=== PATIENT | female | born 1990 | race Caucasian/White ===

== ENCOUNTER 2019-09-15 00:26 | Day surgery (SDC) | payer BC, SELFPAY ==
[2019-09-09 13:33] VITALS: BMI 19.5
[2019-09-15 07:52] VITALS: BMI 19.9
[2019-09-15] MEDS: LACTATED RINGERS 1,000 ML 150 ML IV CONT (08:04)
[2019-09-15 08:10] VITALS: BP 103/75; PULSE 85; RESP 16; TEMP 36.6; O2SAT 100
--- NOTE | 2019-09-15 08:42 | PM.HPGS ---
History of Present Illness History of Present Illness Consent: Risks, benefits, and alternatives have been discussed and questions answered. Patient agrees to proceed with procedure. Chief complaint: Fam Hx Colon Ca Narrative: Ciara Nicole is a 28 year old female with family history of colon cancer, never had a colonoscopy Review of Systems Constitutional: Constitutional: Denies headache(s) and Denies weakness Eyes: Eyes: Denies blurry vision ENT: Reports Normal hearing present, Denies headache(s) and Denies neck pain Cardiovascular: Cardiovascular: Denies chest pain and Denies dyspnea Respiratory: Respiratory: Denies dyspnea Gastrointestinal: Gastrointestinal: Reports no additional gastrointestinal complaints Genitourinary: Genitourinary: Denies dysuria Musculoskeletal: Musculoskeletal: Denies neck pain Integumentary/Breasts: Skin/Breast: Denies dry skin Neurologic: Reports Normal hearing present, Denies headache(s) and Denies weakness Psychiatric: Psychiatric: Denies anxiety Endocrine: Endocrine: Denies change in body appearance Hematologic/Lymphatic: Hematologic/Lymphatic: Denies easy bleeding Allergic/Immunologic: Allergic/Immunologic: Denies urticaria PMFSH Past Medical History Medical History (Updated 07/20/19 @ 10:17 by Josh Neves PA-C) Family history of colon cancer Social History Social History Smoking status: Never smoker Second hand tobacco smoke exposure: No Alcohol intake: current Substance use: never Meds Home Medications and Allergies Home Medications Medication Instructions Recorded Confirmed Type multivitamin 1 tablet PO DAILY 07/13/19 09/15/19 History Allergies Allergy/AdvReac Type Severity Reaction Status Date / Time No Known Allergies Allergy Verified 09/15/19 07:52 Vital Signs Vital Signs - 24 hr 09/15/19 08:10 Temperature 98 F Pulse Rate 85 Respiratory Rate 16 Blood Pressure 103/75 Pulse Oximetry 100 Exam Const: General: comfortable and no acute distress HENMT: General nose exam: Normal nares present Eyes: General: appearance normal, both eyes and all related structures Neck: Neck: no JVD Resp: Auscultation: clear to auscultation bilaterally Cardio: Rate: regular rate Rhythm: regular rhythm GI: Inspection: non-distended GI Palp: Yes Soft to palpation Skin: General skin exam: normal color Neuro: General: gait normal Speech: normal speech Extrem: General: normal to inspection Psych: Mental Status: mental status grossly normal Assessment and Plan Assessment and plan (1) Family history of colon cancer: Code(s): Z80.0 - Family history of malignant neoplasm of digestive organs Status: Acute Assessment and Plan: will proceed with a colonoscopy
[2019-09-15 09:15] VITALS: BP 99/58; PULSE 58; RESP 18; O2SAT 99
[2019-09-15 09:25] VITALS: BP 97/77; PULSE 82; RESP 18; O2SAT 100
[2019-09-15 09:35] VITALS: BP 96/65; PULSE 86; RESP 18; O2SAT 100
== END 2019-09-15 09:41 | disposition home or self-care (01) ==
PROVIDERS: PCP Internal Medicine; Visit Provider Internal Medicine Gastroenterology
PROC: 0DJD8ZZ Inspection of Lower Intestinal Tract, Via Natural or Artificial Opening Endoscopic (ICD-10-PCS; CPT 45378; principal; 2019-09-15 08:30)
DX: Z12.11 Encounter for screening for malignant neoplasm of colon (principal); Z80.0 Family history of malignant neoplasm of digestive organs
CPT/HCPCS: 45378; J2704; J7120

== ENCOUNTER 2020-04-05 10:44 | Outpatient (CLI) | payer BC, SELFPAY ==
--- NOTE | ~2020-04-05 | XR_ITS ---
EXAMINATION:XR cervical spine 4-5V DATE: 04/05/2020 11:07 INDICATION: Neck pain TECHNIQUE: AP, lateral, lateral swimmers and odontoid views of the cervical spine are provided. COMPARISON: None FINDINGS: Alignment is normal. There is straightening of the cervical spine which can be positional or due to muscular spasm. The od ontoid is intact. No fracture is identified. Vertebral body heights and disk spaces are normal. Preve rtebral soft tissues are normal. IMPRESSION: 1. No acute osseous abnormality. Reviewed, dictated and finalized at location A.
--- NOTE | ~2020-04-05 | XR_ITS ---
EXAMINATION: XR lumbar spine 6V w bending DATE: 04/05/2020 11:08 INDICATION: Low back pain TECHNIQUE: Anteroposterior, lateral in neutral, flexion and extension, and bilateral oblique views of the lumbar spine, and cone-down lateral view of the lumbosacral junction were obtained. COMPARISON: None. FINDINGS: There is no fracture, dislocation, or subluxation. The vertebral body heights, alignment, a nd intervertebral disc spaces are normal. The paravertebral soft tissues are unremarkable. No laxity is present with flexion or extension. There is a moderate volume of colonic stool. IMPRESSION: 1. Normal lumbar spine. Reviewed, dictated and finalized at location A. IMPRESSION: 1. Normal lumbar spine.
== END 2020-04-05 10:45 | disposition home or self-care (01) ==
LOC: ANHIMG 10:49
PROVIDERS: PCP Internal Medicine; Visit Provider Physician Assistant
DX: M54.2 Cervicalgia (principal); M54.5 Low back pain
CPT/HCPCS: 72050; 72114

== ENCOUNTER 2020-04-11 13:59 | Outpatient (CLI) | payer BC, SELFPAY ==
--- NOTE | 2020-04-13 12:47 | WPDHOLTEREM ---
Holter/Event Monitor Holter/Event Monitor Date of procedure: 04/11/20 Procedure Type: 24 hour holter monitor Indications: Chest pain Conclusion: 1. 24 hour holter monitor on 04/11/20. 2. Underlying rhythm is sinus rhythm. HR range 48-126 bpm; average HR 75 bpm. 3. There are 2 premature supraventricular complexes. No supraventricular tachycardia. 4. No premature ventricular complexes. No ventricular tachycardia. 5. No sinoatrial or atrioventricular blocks. No significant pauses greater than 2 seconds. 6. Patient reports symptoms of chest pain and nausea which demonstrate sinus rhythm, HR range 65-98 bpm.
== END 2020-04-11 14:00 | disposition home or self-care (01) ==
LOC: ANHCARD 14:00
PROVIDERS: PCP Internal Medicine; Visit Provider Physician Assistant
DX: R07.9 Chest pain, unspecified (principal)
CPT/HCPCS: 93225; 93226

== ENCOUNTER 2020-10-17 16:52 | Outpatient (RCR) | payer BC, SELFPAY ==
[2020-10-20] MEDS: RHO(D) IMMUNE GLOBULIN 300 MCG/2 ML SYRINGE IM (17:21)
== END 2021-01-15 23:59 | disposition home or self-care (01) ==
LOC: ANHLAB 16:52
PROVIDERS: PCP Internal Medicine; Visit Provider Obstetrics & Gynecology
DX: Z29.13 Encounter for prophylactic Rho(D) immune globulin (principal); O36.0190 Maternal care for anti-D [Rh] antibodies, unspecified trimester, not applicable or unspecified; Z3A.00 Weeks of gestation of pregnancy not specified
CPT/HCPCS: 36415; 85461; 90384; 96372; J2790

== ENCOUNTER 2021-01-09 06:44 | Inpatient (IN) | payer BC, SELFPAY ==
[2021-01-09] VITALS (55 sets, daily range): BP systolic 92–138; BP diastolic 51–97; PULSE 69–113; RESP 13–16; TEMP 36.3–37.1; O2SAT 97–100; BMI 27.3
--- NOTE | 2021-01-09 07:00 | LDADM ---
This patient, Ciara Nicole, was admitted to Labor/Delivery/Recovery 106 on 01/09/21 at 06:44. Plans for labor, pain management and were discussed with patient. Patient/family oriented to hospital policies and general routines including ID bracelet, bed and alarms, visiting hours, pain management, procedures, bathroom and other care routines, personal items, smoking policy, room service/diet and guest tray routines, security routines, and visiting hours. Patient/Family are encouraged to report perceived risks to care and to ask questions if they do not understand what they are told or what they should do. See OBIX for further documentation.
[2021-01-09 07:35] LABS: Basophils Percent Auto 0.4 % (0.2-1.2); Eosinophils Percent Auto 0.4 % (0-4.4); Hematocrit 33.8 % (37.0-47.0); Hemoglobin 11.7 g/dL (12.0-15.0); Immature Granulocyte Absolute 0.06 K/mm3 (0.00-0.031); Immature Granulocyte Percent A 0.7 % (0-0.5); Immature Platelet Fraction Pct 11.2 % (0.9-11.2); Lymphocytes Absolute Auto 1.92 K/mm3 (0.9-3.2); Lymphocytes Percent Auto 22.9 % (18.3-44.2); Mean Corpuscular HGB Conc 34.6 g/dl (32-36); Mean Corpuscular Hemoglobin 32.4 pg (26-34); Mean Corpuscular Volume 93.6 fl (80-100); Mean Platelet Volume 11.8 fl (7.4-10.4); Monocytes Absolute Auto 0.9 K/mm3 (0.1-0.6); Monocytes Percent Auto 10.5 % (2.6-8.5); Neutrophils Absolute Auto 5.5 K/mm3 (1.3-6.7); Neutrophils Percent Auto 65.1 % (45.5-73.1); Platelet Count Result 128 k/mm3 (150-375); Red Blood Count 3.61 M/mm3 (4.2-5.4); Red Cell Distribution Width 12.4 % (11.5-14.5); White Blood Count 8.4 K/mm3 (4.5-10.0)
[2021-01-09] MEDS: OXYTOCIN 30 UNITS/NS 500 ML 30 UNITS/500 ML BAG IV CONT (09:28)
[2021-01-09] MEDS: LACTATED RINGERS 1,000 ML 125 ML IV CONT ×2 (09:28→11:12)
--- NOTE | 2021-01-09 09:31 | WPDANESEPPF ---
Anes - Initial Pre Proc Eval Procedure: Labor Epidural Date/Time: 01/09/21 09:31 Surgeon: Sumeet Dawson MD Pre Op Diagnosis: srom Patient Data Age: 30 Gender: F Height: 1.6 m Weight: 70 kg Last Vital Signs Pulse 76 01/09/21 08:01 BP 92/71 L 01/09/21 08:01 Allergies Allergy/AdvReac Type Severity Reaction Status Date / Time No Known Allergies Allergy Verified 01/04/21 10:36 Home Medications Medication Instructions Recorded Confirmed Type vits no.126-ferrous fum 1 tablet PO DAILY 05/25/20 01/09/21 History 28 mg iron-folic acid 800 mcg tablet Laboratory Tests 01/09/21 01/09/21 07:18 07:18 WBC 8.4 K/mm3 K/mm3 (4.5-10.0) RBC 3.61 M/mm3 L M/mm3 (4.2-5.4) Hgb 11.7 g/dL L g/dL (12.0-15.0) Hct 33.8 % L % (37.0-47.0) MCV 93.6 fl fl (80-100) MCH 32.4 pg pg (26-34) MCHC 34.6 g/dl g/dl (32-36) RDW 12.4 % % (11.5-14.5) Plt Count 128 k/mm3 L k/mm3 (150-375) MPV 11.8 fl H fl (7.4-10.4) Immature Gran % (Auto) 0.7 % H % (0-0.5) Neut % (Auto) 65.1 % % (45.5-73.1) Lymph % (Auto) 22.9 % % (18.3-44.2) Reeves % (Auto) 10.5 % H % (2.6-8.5) Eos % (Auto) 0.4 % % (0-4.4) Baso % (Auto) 0.4 % % (0.2-1.2) Lymph # (Auto) 1.92 K/mm3 K/mm3 (0.9-3.2) Reeves # (Auto) 0.9 K/mm3 H K/mm3 (0.1-0.6) Eos # (Auto) 0.0 K/mm3 K/mm3 (0-0.3) Baso # (Auto) 0.0 K/mm3 K/mm3 (0.0-0.1) Abs Immat Gran (auto) 0.06 K/mm3 H K/mm3 (0.00-0.031) Absolute Neuts (auto) 5.5 K/mm3 K/mm3 (1.3-6.7) Absolute Nucleated RBC 0.0 K/mm3 K/mm3 (0.0-0.012) Nucleated RBC % 0.0 % % (0.0-0.2) % Immature Plt Fraction 11.2 % % (0.9-11.2) RPR Pending Patient hx anesthesia problems: none Family hx anesthesia problems: none PMFSH Past Medical History Medical History Vaginal delivery x1 Surgical History Surgical History History of colonoscopy Family History Family History Mother Family history of gynecological problem Sibling Family history of gynecological problem Father Carcinoma of colon, Onset Age: 46 Grandparent Family history of malignant neoplasm of breast Social History Social History Smoking status: Never smoker Second hand tobacco smoke exposure: No Alcohol intake: current Substance use: never Spiritual care concerns: No Anes - Eval Final PreProcedure Day of Procedure 01/09/21 09:31 Patient weight: normal Heart: regular rate and rhythm Lungs: normal air movement Airway: Mallampati scale class II Neurological: alert and oriented Last oral intake: >/= 8 hours ASA classification: II Emergent: no Anesthetic plan: proceed Anesthesia type and monitoring: regional epidural Informed Consent: The patient's anesthetic plan and its attendant risks and benefits were discussed with the patient/family/POA. Questions were solicited and answers provided to the satisfaction of the patient/family/POA.
[2021-01-09 12:29] LABS: Rapid Plasma Reagin Non-Reactive (NonReactive)
[2021-01-09] MEDS: OXYTOCIN 30 UNITS/NS 500 ML 30 UNITS/500 ML BAG 125 UNITS IV CONT (12:55)
--- NOTE | 2021-01-09 12:57 | P.PCNOB_ITS ---
OB - Delivery Note Procedure Delivery date: 01/09/21 Procedure: Spontaneous vaginal delivery. Intrapartal events: None Induction method: none Delivery augmentation: pitocin Delivery monitor: external FHT Route of delivery: Specimen: No Quantitative Blood Loss (ml): 150 Anesthesia type: Epidural Disposition: floor Complications: None Narrative: Patient admitted to labor and delivery with complaints of leaking of fluid at 0500. Rupture of membranes confirmed. She had a cervical check at approximately 0915 and no change in cervical dilation. Contractions irregular mild. Pitocin augmentation was started. She requested and received epidural. She progressed to complete. She pushed twice and delivered a male infant. [place] Baby Date of : 01/09/21 Time of : 12:34 Weeks of gestation at delivery: 39 gender: Male Weight (pounds): 7 Weight (ounces): 5 presentation: vertex (right compound hand presentation.) position: Left Occiput Anterior (right compound hand presentation) Placenta delivery description: Spontaneous cord vessel description: Nuchal Cord, Loose and Delayed Cord Clamping score one minute: 9 score five minutes: 9
--- NOTE | 2021-01-09 16:50 | PC.NURSE ---
Mother called out for assist with feeding. Mother reports attempting for 20+ minutes infant is sleepy and waking to latch. Reviewed feeding cues, frequencies, duration of feedings, feeding elimination flow sheet, and signs of adequate intake. Demonstrated stimulation techniques to wake for feeding. Assisted with to breast. Reviewed positioning/alignment in cross cradle, holding breast in ?U? hold and guided asymmetrical latch on. Infant able to latch correctly. Infant nursed eagerly, with steady draws and frequent swallowing noted for approximately 2-3 minutes then fell asleep. returned to breast with good latch and no suckling noted. Reviewed signs of a correct latch, effective nursing and suck swallow ratio. Infant was able to maintain latch without discomfort to mother. Nipple care reviewed of lanolin after feedings, warm compresses as needed. Suggested mother stimulate while feeding to increase stimulate, increase intake and to assist with maintaining deep latch. Advised to skin to skin for 30 minutes and attempt again. Report to primary RN Instructed mother to call out for RN assistance if she is unable to latch for feeding or she has discomfort with nursing. Instructed feeding should be initiated three hours from start of last feeding or if feeding cues are noted before. Mother voiced understanding of information shared.
[2021-01-09] MEDS: ACETAMINOPHEN 325 MG TABLET 650 MG PO (20:44)
[2021-01-09] MEDS: IBUPROFEN 600 MG TABLET PO (23:45)
[2021-01-10 04:45] VITALS: BP 109/69; PULSE 89; RESP 14; TEMP 36.6; O2SAT 97
[2021-01-10 05:18] LABS: Hemoglobin 10.5 g/dL (12.0-15.0)
[2021-01-10] MEDS: IBUPROFEN 600 MG TABLET PO ×3 (05:37→19:50)
--- NOTE | 2021-01-10 07:24 | WPDANLDPN2 ---
Anes-Prog Note L&D Date/Time: 01/10/21 07:24 Comfortable throughout: labor and delivery Neuraxial method: epidural Epidural/Spinal procedure site: clean & non-tender Neuro status: Neuro function grossly intact. Cardiovascular status: normal Respiratory status: normal Airway patency: baseline Mental status: baseline Post-Op hydration status: normal Vital Signs: Last Vital Signs Temp 36.6 C 01/10/21 04:45 Pulse 89 01/10/21 04:45 Resp 14 01/10/21 04:45 BP 109/69 01/10/21 04:45 Pulse Ox 97 01/10/21 04:45 Pain score (VAS): 3 I/O: Intake & Output 01/09/21 01/09/21 01/10/21 15:59 23:59 07:59 Intake Total 1500 Output Total 305 Balance 1195 Post-procedural complaints: none Patient feedback: Patient satisfied with anesthetic care.
[2021-01-10 08:00] VITALS: BP 106/61; PULSE 94; RESP 20; TEMP 36.3; O2SAT 98
[2021-01-10 08:04] VITALS: PULSE 89; RESP 14; O2SAT 97
--- NOTE | 2021-01-10 08:16 | PM.IMHP ---
H&P: HPI History of Present Illness Date/Time: 01/10/21 08:16 Patient at 39 weeks admitted with SROM clear at 0500, confirmed on L and D. Cervix 2/5/50/-3. Irregular mild ctx. PNC uncomplicated. GBS neg. Labs reviewed. Chief Complaint: Leaking of fluid Review of Systems Review of Systems: All systems reviewed & are unremarkable except as noted in HPI and below Constitutional: Constitutional: Reports no additional constitutional complaints and Denies headache(s) Eyes: Eyes: Denies spots in vision ENT: Reports system reviewed and no additional complaints, except as documented and Denies headache(s) Cardiovascular: Cardiovascular: Denies chest pain and Denies dyspnea Respiratory: Respiratory: Denies dyspnea Gastrointestinal: Gastrointestinal: Reports no additional gastrointestinal complaints Genitourinary: Genitourinary: Reports amenorrhea Musculoskeletal: Musculoskeletal: Reports no additional musculoskeletal complaints Neurologic: Denies headache(s) Psychiatric: Psychiatric: Reports no additional psychiatric complaints PMFSH Past Medical History Medical History Vaginal delivery x1 Surgical History Surgical History History of colonoscopy Family History Family History Mother Family history of gynecological problem Sibling Family history of gynecological problem Father Carcinoma of colon, Onset Age: 46 Grandparent Family history of malignant neoplasm of breast Social History Social History Smoking status: Never smoker Second hand tobacco smoke exposure: No Alcohol intake: current Substance use: never Spiritual care concerns: No Meds Home Medications and Allergies Home Medications Medication Instructions Recorded Confirmed Type vits no.126-ferrous fum 1 tablet PO DAILY 05/25/20 01/09/21 History 28 mg iron-folic acid 800 mcg tablet Allergies Allergy/AdvReac Type Severity Reaction Status Date / Time No Known Allergies Allergy Verified 01/04/21 10:36 Vital Signs Vital Signs - 24 hr 01/09/21 09:30 01/09/21 09:46 01/09/21 10:00 Temperature 97.4 F L Pulse Rate 81 87 Respiratory Rate Blood Pressure 120/71 112/75 Pulse Oximetry 01/09/21 10:32 06/08/21 11:00 01/09/21 11:01 Temperature Pulse Rate 83 86 91 Respiratory Rate Blood Pressure 96/51 L 118/74 99/78 L Pulse Oximetry 98 01/09/21 11:04 01/09/21 11:06 01/09/21 11:07 Temperature Pulse Rate 113 H 75 Respiratory Rate Blood Pressure 136/61 138/70 Pulse Oximetry 100 01/09/21 11:09 01/09/21 11:10 01/09/21 11:11 Temperature Pulse Rate 70 77 Respiratory Rate Blood Pressure 122/65 123/69 Pulse Oximetry 99 01/09/21 11:13 01/09/21 11:15 01/09/21 11:16 Temperature Pulse Rate 78 78 Respiratory Rate Blood Pressure 124/69 117/71 Pulse Oximetry 97 01/09/21 11:19 01/09/21 11:21 01/09/21 11:22 Temperature Pulse Rate 77 78 Respiratory Rate Blood Pressure 120/58 L 115/72 Pulse Oximetry 97 01/09/21 11:25 01/09/21 11:26 01/09/21 11:27 Temperature Pulse Rate 77 72 Respiratory Rate Blood Pressure 115/69 119/63 Pulse Oximetry 100 01/09/21 11:31 01/09/21 11:34 01/09/21 11:36 Temperature Pulse Rate 73 70 76 Respiratory Rate Blood Pressure 122/54 L 117/64 116/74 Pulse Oximetry 98 98 01/09/21 11:39 01/09/21 11:41 01/09/21 11:43 Temperature Pulse Rate 70 83 Respiratory Rate Blood Pressure 122/75 115/65 Pulse Oximetry 99 01/09/21 11:45 01/09/21 11:46 01/09/21 11:51 Temperature Pulse Rate 83 Respiratory Rate Blood Pressure 110/77 Pulse Oximetry 99 98 01/09/21 11:56 01/09/21 12:01 01/09/21 12:02 Temperature Pulse Rate 81 Respira
--- NOTE | 2021-01-10 08:19 | PM.OBPNLAB ---
Pain Control Date/time seen: 01/09/21 0920 tracing 145, Cat 1, irreg mild ctx. Cervix 2.5/60/-2. Unchanged from admission. Pitocin augmentation.
[2021-01-10] MEDS: MULTIVIT/MIN/PREN/FOL AC/IRON TABLET 1 TAB PO (09:19)
[2021-01-10 11:50] VITALS: BP 109/59; PULSE 88; RESP 18; TEMP 36.7; O2SAT 99
[2021-01-10 19:50] VITALS: BP 125/80; PULSE 87; RESP 15; TEMP 36.9; O2SAT 97
[2021-01-11] MEDS: IBUPROFEN 600 MG TABLET PO (05:38)
[2021-01-11 08:10] VITALS: BP 109/70; PULSE 85; RESP 16; TEMP 37.3; O2SAT 99
[2021-01-11] MEDS: MULTIVIT/MIN/PREN/FOL AC/IRON TABLET 1 TAB PO (08:34)
[2021-01-11] MEDS: TETANUS,DIPHTHERIA,AC PERTUSSIS ADULT (0.5 ML) BOOSTRIX IM (08:35)
--- NOTE | 2021-01-11 09:43 | PM.OBPNVD ---
OB - PN: Subj Subjective Date/time seen: 01/11/21 09:43 Patient comments: pain well controlled, tolerating diet and other (Decreasing lochia.) baby status: doing well and nursing well [place] feeding status: exclusively breast feeding OB - PN: Obj Data Labs CBC & Chem 7: 01/10/21 04:54 OB - PN A/P Plan day: 2 Plan: discharge home and other Comments: Patient doing well. Follow up 4-6 weeks. Discharge instructions provided. Time Spent With Patient Time: Total time spent is greater than 50% in coordination of care (as documented) at patient's floor/unit and/or counseling patient: Time with patient: less than 15 minutes Exam Const: General: comfortable and no acute distress Eyes: General: appearance normal, both eyes and all related structures Resp: Effort & Inspection: normal respiratory effort Psych: Affect: normal affect Other: Abd: fundus firm below umbilicus, nontender Perineum: healing Ext: nontender
--- NOTE | 2021-01-11 09:44 | PM.OBDSVD ---
DS: Admitting Diagnosis Admitting Diagnosis Admitting Diagnosis: Spontaneous rupture of membranes DS: Discharge Diagnosis Discharge Diagnosis (1) Delivery normal: Code(s): O80 - Encounter for full-term uncomplicated delivery Status: Acute OB - DS: Summary OB Procedures : Ultrasound OB Procedures Intrapartum: Spontaneous Vag Delivery OB Procedures: : None Peripartum Data Infant Delivery Method: Natural Vaginal Laceration Description: None complications: none Status at Discharge Functional status at discharge: independent ambulation Overall status at discharge: patient is back to baseline Time Spent with Patient Time attestation: Total time spent providing and/or coordinating discharge services: Exam Const: General: comfortable and no acute distress Eyes: General: appearance normal, both eyes and all related structures Resp: Effort & Inspection: normal respiratory effort Psych: Affect: normal affect Other: Abd: fundus firm below umbilicus, nontender Perineum: healing Ext: nontender Discharge Plan Discharge Attending physician on discharge: Sumeet Dawson Consulting providers: Jeremy Joshi Discharging Clinician: Sumeet Dawson Anticipated Discharge Date/Time: 01/11/21 09:00 Patient Disposition: Home, Self-Care Activity: may shower and pelvic rest Diet: regular Discharge Instructions: Pelvic rest for 4-6 weeks. May take over the counter Ibuprofen or Tylenol for pain. Call if saturating more than a pad an hour, leg redness, pain and swelling, temperature>100.4. No strenuous activity. Patient Instructions: Antibiotic Form Stand Alone Forms: General Discharge Information Follow-up/Referrals: Sumeet Dawson MD [Physician] - 4 Weeks (Call for appointment) Discharge Medications: New KPN Tablet 1 tab PO DAILY Qty: 1 RF: 0 Continued Classic 28 mg iron- 800 mcg tablet 1 tablet PO DAILY RF: 0 Date of admission: 01/09/21 06:44 Primary Care Provider: Adolph Robertson Admitting Provider: Sumeet Dawson Attending physician on admission: Sumeet Dawson Condition: Stable
--- NOTE | 2021-01-11 09:45 | PC.NURSE ---
Observed mother is able to independently latch with appropriate positioning/alignment. She reports slight nipple discomfort, is feeding as required and waking to feed if needed. Reviewed nipple care of lanolin after each feeding and warm compresses as needed. Infant has had at least 8 effective feedings in the past 24 hours, and is currently meeting outcomes for weight, output, jaundice and feeding frequencies. Mother states she feels confident to continue effective at home. Reviewed transition to breast milk, signs of adequate intake, and engorgement/relief. Instructed to call ICP if intake/output less than required. Reviewed regular medications mother is taking. Information provided per Katerina. Reviewed community resources on the [facility] website and in the Mom/Baby guide. Information on outpatient services provided. Mother has no further questions at this time.
--- NOTE | 2021-01-11 10:44 | PC.NURSE ---
Patient viewed the discharge video Mother & Baby Care, The First Two Weeks . Patient was given the opportunity and encouraged to ask questions. Patient verbalized understanding of information shared and has been given the mother/baby guide for home reference.
[2021-01-12 10:28] VITALS: BP 129/84; PULSE 105; RESP 14; TEMP 37; O2SAT 99
== END 2021-01-11 11:50 | disposition home or self-care (01) | DRG 807 ==
LOC: ANHLDR 06:52 → ANHOB2 15:05
PROVIDERS: Admitting Provider Obstetrics & Gynecology; PCP Internal Medicine; Visit Provider Obstetrics & Gynecology
DX: O32.2XX0 Maternal care for transverse and oblique lie, not applicable or unspecified (principal); Z37.0 Single live birth; O69.81X0 Labor and delivery complicated by cord around neck, without compression, not applicable or unspecified; Z3A.39 39 weeks gestation of pregnancy
CPT/HCPCS: 36415; 85014; 85018; 85025; 85055; 86592; 86850; 86900; 86901; 90715; A9270; J2590; J2795; J7120

== ENCOUNTER 2023-04-28 09:17 | Outpatient (CLI) | payer BC, SELFPAY ==
[2023-04-28 10:04] LABS: Basophils Percent Auto 0.4 % (0.2-1.2); Eosinophils Absolute Auto 0.1 K/mm3 (0-0.3); Eosinophils Percent Auto 1.3 % (0-4.4); Hematocrit 35.4 % (37.0-47.0); Hemoglobin 11.7 g/dL (12.0-15.0); Immature Granulocyte Absolute 0.01 K/mm3 (0.00-0.031); Immature Granulocyte Percent A 0.2 % (0-0.5); Lymphocytes Absolute Auto 1.95 K/mm3 (0.9-3.2); Lymphocytes Percent Auto 41.2 % (18.3-44.2); Mean Corpuscular HGB Conc 33.1 g/dl (32-36); Mean Corpuscular Hemoglobin 30.9 pg (26-34); Mean Corpuscular Volume 93.4 fl (80-100); Monocytes Absolute Auto 0.4 K/mm3 (0.1-0.6); Monocytes Percent Auto 9.1 % (2.6-8.5); Neutrophils Absolute Auto 2.3 K/mm3 (1.3-6.7); Neutrophils Percent Auto 47.8 % (45.5-73.1); Platelet Count Result 164 k/mm3 (150-375); Red Blood Count 3.79 M/mm3 (4.2-5.4); Red Cell Distribution Width 12.1 % (11.5-14.5); White Blood Count 4.7 K/mm3 (4.5-10.0)
[2023-04-28 10:11] LABS: Alanine Aminotransferase 12 U/L (6-35); Albumin Level 4.2 g/dL (3.5-5.1); Alkaline Phosphatase 53 U/L (38-126); Anion Gap 7 mmol/L (8-16); Aspartate Amino Transferase 19 U/L (14-36); Bilirubin,Total 0.6 mg/dL (0.2-1.3); Blood Urea Nitrogen 10 mg/dL (7-17); Calcium 8.9 mg/dL (8.4-10.2); Carbon Dioxide 27 mmol/L (22-30); Chloride 105 mmol/L (98-107); Cholesterol 212 mg/dL (0-200); Estimated Glomerular Filt Rate > 60; Glucose 90 mg/dL (65-110); HDL Direct 42 mg/dL; Potassium 4.3 mmol/L (3.4-5.0); Sodium 139 mmol/L (137-145); Triglycerides 36 mg/dL (<150)
[2023-04-28 10:24] LABS: LDL Cholesterol Direct 129 mg/dL
== END 2023-04-28 09:18 | disposition home or self-care (01) ==
LOC: ANHLAB 09:20
PROVIDERS: PCP Physician Assistant; Visit Provider Physician Assistant
DX: Z00.00 Encounter for general adult medical examination without abnormal findings (principal)
CPT/HCPCS: 36415; 80053; 80061; 84443; 85025

== ENCOUNTER 2024-12-17 10:42 | Outpatient (CLI) | payer BC, SELFPAY ==
--- NOTE | ~2024-12-17 | US_ITS ---
Pelvic ultrasound. Clinical History: First trimester , establish dates and viability Technique: Realtime transabdominal and transvaginal scanning of the pelvis was performed. Color flow Doppler and Doppler spectral analysis were performed. Findings: The uterus is anteverted, and contains an intrauterine gestation with crown-rump length of 2.8 cm corresponds to an estimated gestational age of 9 weeks 4 days. heart rate is 179 bpm. Yo lk sac present.. The right ovary measures 3.1 x 2.2 x 3.0 cm. No significant right ovarian or adnexal mass is seen. The left ovary measures 2.9 x 1.6 x 2.1 cm. No significant left ovarian or adnexal mass is seen. There is no evidence of free fluid in the cul de sac. Impression: Live intrauterine gestation, with estimated gestational age of 9 weeks 4 days. heart rate is 17 9 bpm. Sonographic JESICA is 07/18/2025. Reviewed, dictated and finalized at location . Impression: Live intrauterine gestation, with estimated gestational age of 9 weeks 4 days. heart rate is 179 bpm. Sonographic JESICA is 07/18/2025.
== END 2024-12-17 10:43 | disposition home or self-care (01) ==
LOC: MICIMG 10:44
PROVIDERS: PCP Nurse Practitioner Family; Visit Provider Nurse Practitioner Family
DX: O36.80X0 Pregnancy with inconclusive fetal viability, not applicable or unspecified (principal); Z3A.00 Weeks of gestation of pregnancy not specified
CPT/HCPCS: 76801; 76817

== ENCOUNTER 2025-01-11 15:23 | Outpatient (CLI) | payer BC, SELFPAY ==
[2025-01-11 15:59] LABS: Hematocrit 32.3 % (37.0-47.0); Hemoglobin 10.8 g/dL (12.0-15.0); Mean Corpuscular HGB Conc 33.4 g/dl (32-36); Mean Corpuscular Hemoglobin 30.9 pg (26-34); Mean Corpuscular Volume 92.6 fl (80-100); Mean Platelet Volume 10.1 fl (7.4-10.4); Platelet Count Result 159 k/mm3 (150-375); Red Blood Count 3.49 M/mm3 (4.2-5.4); White Blood Count 9.3 K/mm3 (4.5-10.0)
--- OUTSIDE RECORDS SUMMARY | 2025-01-11 16:48 | XMS_ITS | Clinical Summary ---
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
[2025-01-11 17:06] LABS: HIV 1/2 Ab P24 Ag Result Negative (Negative)
[2025-01-11 17:20] LABS: Syphilis IgG/IgM Antibody Non-Reactive (Nonreactive)
[2025-01-11 17:23] LABS: Hepatitis B Surface Antigen Negative (Negative)
[2025-01-11 17:40] LABS: Hepatitis C Virus Antibody Negative (Negative)
[2025-01-12 11:28] LABS: Add Urine Microscopic? YES; Appearance Urine Turbid (Clear); Bacteria Urine 4+ /hpf; Bilirubin Urine Negative (Negative); Blood Urine Negative (Negative); Color Urine Yellow (Yellow); Glucose Urine UA Negative (Negative); Ketones Urine Negative (Negative); Leukocyte Esterase Ur Trace LEU/UL (Negative); Mucus Urine Present /lpf; Need Manual Microscopic Reviewed; Nitrate Urine Negative (Negative); Protein Urine Negative (Negative); RBC Urine 0-2 /hpf (0-2); Specific Grav Ur 1.031 (1.001-1.035); Squamous Epithelial Cell Urine Few /hpf (Few); Uric Acid Crystals Urine Present /hpf; Urobilinogen Urine 0.2 mg/dL (<2.0); pH Urine 5.5 (5.0-9.0)
[2025-01-12 16:02] LABS: Hematocrit 33.7 % (35.0-45.0); Hemoglobin 10.9 g/dL (11.7-15.5); MCH 31.1 pg (27.0-33.0); RDW 12.9 % (11.0-15.0); Red Blood Cell Count 3.51 Million/uL (3.80-5.10)
== END 2025-01-11 15:24 | disposition home or self-care (01) ==
LOC: ANHLAB 15:24
PROVIDERS: PCP Internal Medicine; Visit Provider Obstetrics & Gynecology
DX: Z34.90 Encounter for supervision of normal pregnancy, unspecified, unspecified trimester (principal)
CPT/HCPCS: 36415; 81001; 83021; 84443; 85027; 86593; 86703; 86762; 86787; 86803; 86850; 86900; 86901; 87086; 87340; G0432

== ENCOUNTER 2025-04-29 09:34 | Outpatient (CLI) | payer BC, SELFPAY ==
--- OUTSIDE RECORDS SUMMARY | 2025-04-29 09:37 | XMS_ITS | Clinical Summary ---
Author Organization [facility] Address [address] [place] [address] Care Team Providers Care Head Of Housekeeping Name Role Phone Unavailable Primary Care Provider Unavailabl e Source Comments [facility],non-owned Affiliates and Associated Physician Practices is amultiple site organization consisting of ambulatory clinics and hospital sitesin [place], [place], [place] and [place]. This disclosure is being madepursuant to the Care Everywhere program and may not contain all information available regarding this patient. Last updated 18.[facility] Allergies No known active allergies Encounters Date Type Department Care Team Description 04/08/2025 10:22 AM CDT - 04/08/2025 11:59 PM CDT Hospital Encounter [facility] [address] [place] [phone] Desmond Mccullough MD COMMUNICATIONS AGENT Discharge Disposition: Home or Self Care 03/07/2025 10:28 AM CDT - 03/07/2025 11:59 PM CDT Hospital Encounter [facility] [address] [place] [phone] Nori Cox MD Discharge Disposition: Home or Self Care from Last 3 Months Social History Tobacco Use Types Packs/Day Years Used Date Smoking Tobacco: Never Assessed Estimated Date of Delivery Comme nts Yes 07/21/2025 Based on last me nstrual period of 10/14/2024 Sex and Gender Information Value Date Recorded Sex Assigned at Not on file Legal Sex Female 8:54 AM CDT Gender Identity Not on file Sexual Orientation Not on file Plan of Treatment Upcoming Encounters Date Type Department Care Team (Late st Contact Info) Description 05/06/2025 8:15 AM CDT Appointment [facility] [address] [place] [address] [place] [address] Health Maintenance Due Date Last Done Comments HIV SCREENING 2005 HEPATITIS C SCREENING 12/04/2008 DTAP/TDAP/TD VACCINES (1 - Tdap) 2009 HEPATITIS B VACCINE (1 of 3 - 19+ 3-dose series) 2009 PAP SMEAR 12/10/2011 HPV VACCINE (1 - 3-dose SCDM series) 2017 DEPRESSION SCREENING 08/04/2024 COVID-19 VACCINE (4 - 2024-2 6 season) 2025 12/18/2021, 06/09/2021, 05/19/2021 INFLUENZA VACCINE (#1) 2025 OB-ONE HOUR GLUCOSE 04/14/2025 OB-TDAP CURRENT 04/21/2025 01/11/2021 OB-RHOGAM INJECTION 04/28/2025 Respiratory Syncytial Virus (RSV) Vaccine Pt: or over 60 yrs (1 - Risk 1-dose series) 05/26/2025 ZOSTER VACCINE (1 of 2) 2040 HIB VACCINE Aged Out No longer eligi ble based on patient's age to complete this topic MENINGOCOCCAL (Group B) VACCINE SHARED DECISION-MAKING Aged Out No longer eligible based on patient's age to complete this topic MENINGOCOCCAL GROUPS A/C/Y/W VACCINE Aged Out No longer eligible b ased on patient's age to complete this topic PNEUMOCOCCAL VACCINE Aged Out No long er eligible based on patient's age to complete this topic Procedures Procedure Name Priority Date/Time Associated Diagnosis Comments SONOGRAM - COMPLETE Routine 04/08/2025 1 0:26 AM CDT Third (HCC) Encounter for follow-up ultrasound of anatomy (HCC) Encounter for ultrasound to assess growth (HCC) 24 weeks gestation of (HCC) SONOGRAM - COMPLETE Routine 03/07/2025 1 1:01 AM CDT Encounter for anatomic survey (HCC) Third (HCC) from Last 3 Months Results * Sonogram - Complete (04/08/2025 10:26 AM CDT) Only the most recent of2 resultswithin the time period is included. Linked Results Indication ======== Incomplete anatomy History ====== OB History 3. Para 2 T2L2 1. live 2017. Gest. age 39 w + 5 d. Details: Vaginal delivery 2. live 2020. Gest. age 39 w + 5 d. Details: Vaginal delivery Maternal Assessment Physical Exam Height 163 cm, 5 ft 4 in. Weight 63 kg, 138 lb. Initial weight 59 kg, 130 lb. BMI 23.69 kg/m . Initial BMI 22.31 kg/m . Weight gain 4 kg, 8 lb Method ====== Transabdominal ultrasound. View: Limited by position ========= Otoole . Number of fetuses: 1 Dating ====== Date Details Gest. age JESICA LMP 10/14/2024 25 w + 1 d 07/21/2025 Stated JESICA 25 w + 1 d 07/21/2025 U/S 04/08/2025 based upon AC, BPD, Femur, HC 27 w + 0 d 07/08/2025 Assigned dating based on the LMP, selected on 03/07/2025 25 w + 1 d 07/21/2025 General Evaluation Cardiac activity present. FHR 146 bpm. Presentation: cephalic Placenta: Placental site: anterior Umbilical cord: Cord vessels: 3 vessel cord - previously documented. Insertion site: normal insertion Amniotic fluid: Amount of AF: normal. MVP 6.6 cm Biometry BPD 68.0 mm 27w 3d 96% Hadlock HC 251.0 mm 27w 2d 92% Hadlock AC 223.6 mm 26w 5d 87% Hadlock Femur 48.8 mm 26w 3d 75% Hadlock Humerus 43.9 mm 26w 1d 75% Varsha HC / AC 1.12 Weight Calculation: EFW 975 g 95% Hadlock EFW (lb,oz) 2 lb 2 oz EFW by Hadlock ([id number]) borderline LGA Growth Overview Exam date GA BPD (mm) HC (mm) AC (mm) FL (mm) HL (mm) EFW (g) 03/07/2025 20w 4d 52.7 93% 194.3 85% 166.7 79% 36.9 80% 33.1 72% 443 93% 04/08/2025 25w 1d 68 96% 251 92% 223.6 87% 48.8 75% 43.9 75% 975 95% Anatomy The following structures appear normal: Abdomen Stomach. Kidneys. Bladder. Spine Cervical spine. Thoracic spine. Lumbar spine. Sacral spine. The following structures were documented previously: Head / Neck Cranium. Lateral ventricles. Choroid plexus. Midline falx. Cavum septi pellucidi. Cerebellum. Cisterna magna. Thalami. Nuchal fold. Face Lips. Profile. Nose. Nasal bone. Orbits. Heart / Thorax 4-chamber view. RVOT view. LVOT view. 3-vessel view. 5-mblrem-tqshsjv view. Situs. Aortic arch view. Bicaval view. Ductal arch view. Great vessels. Right lung. Left lung. Diaphragm. Abdomen Cord insertion. Bowel. Genitals. Extremities / Skeleton Arms. Hands. Legs. Feet. Impression ========= Single, live, intrauterine at 25w 1d. The size is borderline LGA. The amniotic fluid volume is normal. No major malformations were seen within the limitations of ultrasound. Comment ======== ultrasound alone cannot detect all structural, genetic, or functional , placental, or maternal abnormalities. Follow-up ======== Follow up ultrasound in 4 weeks for growth assessment due to LGA fetus. Coding ====== Diagnoses Z36.3: Encounter for screening for malformations Z36.2: Encounter for other screening follow-up Procedures 60316: US Preg Uterus Follow Up StackAdapt PACS Anatomical Region Laterality Modality Other 04/08/2025 10:2 6 AM CDT Sumeet Thomas MD [facility] ORDERABLES Edited Result - Final from Last 3 Months Insurance [employer]
--- OUTSIDE RECORDS SUMMARY | 2025-04-29 09:38 | XMS_ITS | Clinical Summary ---
Author Organization [facility] Address [address] [place] [phone] Phone Care Team Providers Care Trim And Burr Operator Name Role Phone Unavailable Primary Care Provider Unavailabl e Social History Tobacco Use Types Packs/Day Years Used Date Smoking Tobacco: Never Assessed Comments Unknown Sex and Gender Information Value Date Recorded Sex Assigned at Not on file Legal Sex Female 1:18 PM TOOL MECHANIC Gender Identity Not on file Sexual Orientation Not on file Plan of Treatment Health Maintenance Due Date Last Done Comments DTAP/TDAP/TD VACCINES (1 - Tdap) 2009 HEPATITIS B VACCINES (1 of 3 - 19+ 3-dose series) 03/2010 HPV/Cotest (21-29) 12/10/2011 HPV VACCINES (1 - 3-dose SCDM series) 2017 CERVICAL CANCER SCREENING 2020 HPV/Cotest (30-65) 2020 PAP SMEAR 2020 INFLUENZA VACCINE (#1) 2025 Insurance [facility] BLUE ACCESS/TRUE BLUE PPO [facility]
[2025-04-29 11:08] LABS: Hematocrit 32.8 % (37.0-47.0); Hemoglobin 11.0 g/dL (12.0-15.0); Mean Corpuscular HGB Conc 33.5 g/dl (32-36); Mean Corpuscular Hemoglobin 31.4 pg (26-34); Mean Corpuscular Volume 93.7 fl (80-100); Platelet Count Result 142 k/mm3 (150-375); Red Blood Count 3.50 M/mm3 (4.2-5.4); White Blood Count 7.0 K/mm3 (4.5-10.0)
[2025-04-29 11:30] LABS: Glucose 1 Hour PP 50gm Dose 104 mg/dL
[2025-04-29 11:58] LABS: Syphilis IgG/IgM Antibody Non-Reactive (Nonreactive)
[2025-04-29 12:10] LABS: HIV 1/2 Ab P24 Ag Result Negative (Negative)
== END 2025-04-29 09:35 | disposition home or self-care (01) ==
LOC: ANHLAB 09:35
PROVIDERS: PCP Internal Medicine; Visit Provider Nurse Practitioner Obstetrics & Gynecology
DX: Z34.90 Encounter for supervision of normal pregnancy, unspecified, unspecified trimester (principal)
CPT/HCPCS: 36415; 82947; 85027; 86593; 86703; G0432

== ENCOUNTER 2025-06-20 10:46 | Outpatient (CLI) | payer BC, SELFPAY ==
[2025-06-20 12:45] LABS: Glucose 1 Hour PP 50gm Dose 161 mg/dL
--- OUTSIDE RECORDS SUMMARY | 2025-06-20 20:23 | XMS_ITS | Clinical Summary ---
Author Organization [facility] Address [address] [place] [phone] Phone Care Team Providers Care Pre Kindergarten Teacher Name Role Phone Unavailable Primary Care Provider Unavailabl e Social History Tobacco Use Types Packs/Day Years Used Date Smoking Tobacco: Never Assessed Comments Unknown Sex and Gender Information Value Date Recorded Sex Assigned at Not on file Legal Sex Female 1:18 PM SOLID PLASTERER Gender Identity Not on file Sexual Orientation Not on file Plan of Treatment Health Maintenance Due Date Last Done Comments DTAP/TDAP/TD VACCINES (1 - Tdap) 2009 HEPATITIS B VACCINES (1 of 3 - 19+ 3-dose series) 03/2010 HPV/Cotest (21-29) 12/10/2011 HPV VACCINES (1 - 3-dose SCDM series) 2017 CERVICAL CANCER SCREENING 2020 HPV/Cotest (30-65) 2020 PAP SMEAR 2020 INFLUENZA VACCINE (#1) 2025 Insurance [employer] BLUE ACCESS/TRUE BLUE [facility]PO [facility]
--- OUTSIDE RECORDS SUMMARY | 2025-06-20 20:23 | XMS_ITS | Clinical Summary ---
Author Organization [facility] Address [facility] [place] [address] Care Team Providers Care Pick Up Worker Name Role Phone Adolph Robertson MD Primary Care Provider [phone] Social History Tobacco Use Types Packs/Day Years Used Date Smoking Tobacco: Never Assessed Comments Unknown Sex and Gender Information Value Date Recorded Sex Assigned at Not on file Legal Sex Female 12:11 PM CDT Gender Identity Not on file Sexual Orientation Not on file Plan of Treatment Health Maintenance Due Date Last Done Comments Cervical Cancer Screening Pap Smear (Age 30 to 64) Every 3 Years 1990 Annual Physical 1993 Hepatitis C 2008 DTaP, Tdap and Td Vaccines (1 - Tdap) 2009 12/04/1995, 11/02/1992, 09/07/1991, Additional history exists Hepatitis B Vaccines (1 of 3 - 19+ 3-dose series) 2009 HPV Vaccines (1 - 3-dose SCDM series) 2017 Cervical Cancer Screening Pap with HPV Testing (Age 30 to 64) Every 5 Years 2020 Cervical Cancer Screening with HPV 2020 COVID-19 Vaccine ( season) 2025 Influenza Adult (#1) 2025 Hepatitis A Vaccines Aged Out No long er eligible based on patient's age to complete this topic Meningococcal B Vaccine Aged Out No l onger eligible based on patient's age to complete this topic Meningococcal Vaccine Aged Out No charlotte liu eligible based on patient's age to complete this topic Pneumococcal Vaccine: Pediatrics (0 to 5 Years) and At-Risk Patients (6 to 49 Years) Aged Out No longer eligible based on patient's age to complete this topic RSV Immunizations Under 20 Months Aged Out No longer eligible based on patient's age to complete this topic Insurance [facility] Care Teams Pick Up Worker Relationship Specialty Start Date End Date Adolph Robertson MD [address] [place] [address] PCP - General INTERNAL MEDICINE 04/12/21
--- OUTSIDE RECORDS SUMMARY | 2025-06-20 20:23 | XMS_ITS | Clinical Summary ---
Author Organization [facility] Address [address] [place] [address] Care Team Providers Care Steel Rigger Name Role Phone Unavailable Primary Care Provider Unavailabl e Source Comments [facility],non-owned Affiliates and Associated Physician Practices is amultiple site organization consisting of ambulatory clinics and hospital sitesin [place], [place] and [place]. This disclosure is being madepursuant to the Care Everywhere program and may not contain all information available regarding this patient. Last updated 18.[facility] Allergies No known active allergies Encounters Date Type Department Care Team Description 06/10/2025 7:27 AM SHIP ENGINEER - 06/10/2025 11:59 PM SHIP ENGINEER Hospital Encounter [facility] [address] [place] [phone] Johny Narvaez MD Discharge Disposition: Home or Self Care 05/06/2025 8:14 AM CDT - 05/06/2025 11:59 PM CDT Hospital Encounter [facility] [address] [place] [phone] Anjel Armas DO WAFER ABRADING MACHINE TENDER Discharge Disposition: Home or Self Care 04/08/2025 10:22 AM CDT - 04/08/2025 11:59 PM CDT Hospital Encounter [facility] [address] [place] [phone] Desmond Mccullough MD WAFER ABRADING MACHINE TENDER Discharge Disposition: Home or Self Care from [...] of 3 - 19+ 3-dose series) 2009 Cervical Cancer Screening 12/10/2011 PAP SMEAR 12/10/2011 HPV VACCINE (1 - 3-dose SCDM series) 2017 PAP with HPV 2020 DEPRESSION SCREENING 08/04/2024 COVID-19 VACCINE (4 - 2024-2 6 season) 2025 12/18/2021, 06/09/2021, 05/19/2021 INFLUENZA VACCINE (#1) 2025 OB-ONE HOUR GLUCOSE 04/14/2025 OB-TDAP CURRENT 04/21/2025 01/11/2021 OB-RHOGAM INJECTION 04/28/2025 Respiratory Syncytial Virus (RSV) Vaccine Pt: or over 60 yrs (1 - Risk 1-dose series) 05/26/2025 OB-GROUP B STREP SCREEN 06/16/2025 ZOSTER VACCINE (1 of 2) 2040 HIB [...] Associated Diagnosis Comments SONOGRAM - COMPLETE Routine 06/10/2025 7 :35 AM SHIP ENGINEER Third (HCC) Encounter for ultrasound to assess growth (HCC) 34 weeks gestation of (HCC) SONOGRAM - COMPLETE Routine 05/06/2025 8 :19 AM CDT Third (HCC) Encounter for ultrasound to assess growth (HCC) 29 weeks gestation of (HCC) Encounter for follow-up ultrasound of anatomy (HCC) SONOGRAM - COMPLETE Routine 04/08/2025 1 0:26 AM CDT Third (HCC) Encounter for follow-up ultrasound of anatomy ([facility]) Encounter for ultrasound to assess growth ([facility]) 24 weeks gestation of ([facility]) from Last 3 Months Results * Sonogram - Complete (06/10/2025 7:35 AM SHIP ENGINEER) Only the most recent of3 resultswithin the time period is included. Linked Results Indication ======== Large for dates History ====== OB History 3. Para 2 T2L2 1. live 2017. Gest. age 39 w + 5 d. Details: Vaginal delivery 2. live 2020. Gest. age 39 w + 5 d. Details: Vaginal delivery Maternal Assessment Physical Exam Height 163 cm, 5 ft 4 in. Weight 68 kg, 151 lb. Initial weight 59 kg, 130 lb. BMI 25.92 kg/m . Initial BMI 22.31 kg/m . Weight gain 10 kg, 21 lb Method ====== Transabdominal ultrasound. View: Sufficient ========= Otoole . Number of fetuses: 1 Dating ====== Date Details Gest. age JESICA LMP 10/14/2024 34 w + 1 d 07/21/2025 Stated JESICA 34 w + 1 d 07/21/2025 Previous U/S 12/17/2024 CRL 28.0 mm 34 w + 4 d 07/18/2025 U/S 06/10/2025 based upon AC, BPD, Femur, HC 36 w + 0 d 07/08/2025 Assigned dating based on the LMP, selected on 03/07/2025 34 w + 1 d 07/21/2025 General Evaluation Cardiac activity present. FHR 141 bpm. Presentation: cephalic Placenta: Placental site: anterior Amniotic fluid: Amount of AF: normal. MVP 6.5 cm. CARLIE 10.9 cm. Q1 6.5 cm, Q2 0.0 cm, Q3 1.3 cm, Q4 3.1 cm Biometry BPD 87.8 mm 35w 3d 83% Hadlock HC 323.3 mm 36w 4d 75% Hadlock AC 338.2 mm 37w 5d >99% Hadlock Femur 66.2 mm 34w 1d 39% Hadlock Humerus 58.4 mm 33w 6d 54% Varsha HC / AC 0.96 Weight Calculation: EFW 2,946 g 95% Hadlock EFW (lb,oz) 6 lb 8 oz EFW by Hadlock ([id number]) LGA Growth Overview Exam date GA BPD (mm) HC (mm) AC (mm) FL (mm) HL (mm) EFW (g) 03/07/2025 20w 4d 52.7 93% 194.3 85% 166.7 79% 36.9 80% 33.1 72% 443 93% 04/08/2025 25w 1d 68 96% 251 92% 223.6 87% 48.8 75% 43.9 75% 975 95% 05/06/2025 29w 1d 80.2 99% 290.3 91% 276 97% 57.2 60% 52.1 78% 1724 96% 06/10/2025 34w 1d 87.8 83% 323.3 75% 338.2 >99% 66.2 39% 58.4 54% 2946 95% Anatomy The following structures appear normal: Abdomen Stomach. Kidneys. Bladder. Impression ========= Single, live, intrauterine at 34w 1d The size is LGA The amniotic fluid volume is normal Comment ======== U/S cannot detect all structural, genetic, or functional , placental, or maternal abnormalities Follow-up ======== Review gestational diabetes mellitus (GDM) screening results Follow up ultrasound in 4 weeks for growth assessment Coding ====== Diagnoses O36.63X0: Maternal care for excessive growth Procedures [id number]: US Preg Uterus Follow Up KitLocate PACS Anatomical Region Laterality Modality Other 06/10/2025 7:35 AM SHIP ENGINEER Sumeet CANTRELL ORDERABLES Edited Result - Final from Last 3 Months Insurance [employer]
== END 2025-06-20 10:47 | disposition home or self-care (01) ==
LOC: ANHLAB 10:48
PROVIDERS: Visit Provider Obstetrics & Gynecology
DX: Z34.90 Encounter for supervision of normal pregnancy, unspecified, unspecified trimester (principal)
CPT/HCPCS: 36415; 82947

== ENCOUNTER 2025-06-24 07:20 | Outpatient (CLI) | payer BC, SELFPAY ==
--- OUTSIDE RECORDS SUMMARY | 2025-06-24 07:23 | XMS_ITS | Clinical Summary ---
Author Organization [facility] Address [address] [place] [phone] Phone Care Team Providers Care Dining Room Captain Name Role Phone Unavailable Primary Care Provider Unavailabl e Social History Tobacco Use Types Packs/Day Years Used Date Smoking Tobacco: Never Assessed Comments Unknown Sex and Gender Information Value Date Recorded Sex Assigned at Not on file Legal Sex Female 1:18 PM ENVIRONMENTAL INTERN Gender Identity Not on file Sexual Orientation [...] 2025 Insurance [employer] BLUE ACCESS/TRUE BLUE PPO HOSPITAL
--- OUTSIDE RECORDS SUMMARY | 2025-06-24 07:23 | XMS_ITS | Clinical Summary ---
Author Organization [facility] Address [facility] [place] [address] Care Team Providers Care Spooling Supervisor Name Role Phone Adolph Robertson MD Primary Care Provider [phone] Social History Tobacco Use Types Packs/Day Years [...] patient's age to complete this topic Insurance [facility] Care Teams Spooling Supervisor Relationship Specialty Start Date End Date Adolph Robertson MD [address] [place] [address] PCP - General INTERNAL MEDICINE 04/12/21
--- OUTSIDE RECORDS SUMMARY | 2025-06-24 07:23 | XMS_ITS | Clinical Summary ---
Author Organization [facility] Address [address] [place] [address] Care Team Providers Care Professor Of Biochemistry Name Role Phone Unavailable Primary Care Provider Unavailabl e Source Comments [facility],non-owned Affiliates and Associated Physician Practices is amultiple site organization consisting of ambulatory clinics and hospital sitesin [place], [place] and [place]. This disclosure is being madepursuant to the Care Everywhere program and may not contain all information available regarding this patient. Last updated 18.[facility] Allergies No known active allergies Encounters Date Type Department Care Team Description 06/10/2025 7:27 AM MANNEQUIN MAKER - 06/10/2025 11:59 PM MANNEQUIN MAKER Hospital Encounter Counts include 234 beds at the [facility] [address] [place] [phone] Johny Narvaez MD Discharge Disposition: Home or Self Care 05/06/2025 8:14 AM CDT - 05/06/2025 11:59 PM CDT Hospital Encounter Counts include 234 beds at the [facility] [address] [place] [phone] Anjel Armas DO BOOKBINDER CHIEF Discharge Disposition: Home or Self Care 04/08/2025 10:22 AM CDT - 04/08/2025 11:59 PM CDT Hospital Encounter Counts include 234 beds at the [facility] [address] [place] [phone] Desmond Mccullough MD BOOKBINDER CHIEF Discharge Disposition: Home or Self Care from [...] - COMPLETE Routine 06/10/2025 7 :35 AM MANNEQUIN MAKER Third (HCC) Encounter for ultrasound to assess growth (HCC) 34 weeks gestation of (HCC) SONOGRAM - COMPLETE Routine 05/06/2025 8 :19 AM CDT Third (HCC) Encounter for ultrasound to assess growth (HCC) 29 weeks gestation of (HCC) Encounter for follow-up ultrasound of anatomy (HCC) SONOGRAM - COMPLETE Routine 04/08/2025 1 0:26 AM CDT Third (HCC) Encounter for follow-up ultrasound of anatomy ([facility]) Encounter for ultrasound to assess growth ([facility]) 24 weeks gestation of ([facility]) from Last 3 Months Results * Sonogram - Complete (06/10/2025 7:35 AM MANNEQUIN MAKER) Only the most recent of3 resultswithin the [...] 6 lb 8 oz EFW by Hadlock ([id number]) LGA Growth Overview Exam date GA BPD [...] O36.63X0: Maternal care for excessive growth Procedures [id number]: US Preg Uterus Follow Up Busap PACS Anatomical Region Laterality Modality Other 06/10/2025 7:35 AM MANNEQUIN MAKER Sumeet CANTRELL ORDERABLES Edited Result - Final from Last 3 Months Insurance [employer]
[2025-06-24 10:18] LABS: Glucose 1 Hour 141 mg/dL
[2025-06-24 10:30] LABS: Glucose 2 Hour 147 mg/dL
[2025-06-24 12:04] LABS: Glucose 3 Hour 118 mg/dL
== END 2025-06-24 07:21 | disposition home or self-care (01) ==
LOC: ANHLAB 07:21
PROVIDERS: Visit Provider Obstetrics & Gynecology
DX: O99.810 Abnormal glucose complicating pregnancy (principal)
CPT/HCPCS: 36415; 82951; 82952